=== PATIENT | male | born 1975 | race Caucasian/White ===

== ENCOUNTER 2025-04-23 13:48 | Emergency (ER) | payer BC ==
[~2025-04-23] VITALS: Ht 172.7 cm; Wt 82.0 kg
[2025-04-23 13:55] VITALS: O2SAT 100
[2025-04-23 16:11] LABS: BASOPHILS % 0.8 % (0.0-2.0); EOSINOPHILS % 1.0 % (0.0-5.0); HEMATOCRIT. 42.1 % (42.0-52.0); HEMOGLOBIN. 14.1 g/dL (14.0-18.0); LYMPHOCYTES % 15.2 % (20.0-50.0); MEAN PLATELET VOLUME 8.1 fl (7.4-10.4); MONOCYTES % 10.1 % (2.0-8.0); NEUTROPHILS % 72.9 % (40.0-76.0); PLATELET 226 x1000/uL (130-400); RED BLOOD CELL COUNT 4.52 mill/uL (4.7-6.1); RED CELL DISTRIBUTION WIDTH 14.5 % (11.6-14.6)
[2025-04-23 16:24] LABS: INR 1.0
[2025-04-23 16:31] LABS: CREATININE 0.8 mg/dL (0.6-1.3); UREA NITROGEN BLOOD 9 mg/dL (9-23)
[2025-04-23 16:33] LABS: ASPARTATE AMINOTRANSFERASE 48 IU/L (<34); TROPONIN I HIGH SENSITIVITY < 4 ng/L (3.0-53)
[2025-04-23 16:34] LABS: BILIRUBIN TOTAL 0.9 mg/dL (0.1-1.0); PROTEIN TOTAL 6.6 g/dL (6.0-8.3)
[2025-04-23 16:36] LABS: HCG SCREEN NEGATIVE
[2025-04-23] MEDS: POVIDONE-IODINE 10% TOPICAL SOLN 240ML TOP ONE (17:28)
[2025-04-23] MEDS: LIDOCAINE HCL 1% 20ML VIAL INFIL ONE (17:28)
[2025-04-23] MEDS ORDERED: CEPH500C2 MT (20:22)
[2025-04-23] MEDS ORDERED: IBUP-1455 MT (20:22)
[2025-04-23 20:41] VITALS: BP 126/74; PULSE 75; RESP 16; TEMP 36.6; O2SAT 98
== END 2025-04-23 20:42 | disposition home or self-care (01) ==
LOC: ER 13:48
DX: S62.521A Displaced fracture of distal phalanx of right thumb, initial encounter for closed fracture (principal); E78.00 Pure hypercholesterolemia, unspecified; I10 Essential (primary) hypertension; R55 Syncope and collapse; W23.0XXA Caught, crushed, jammed, or pinched between moving objects, initial encounter; Y93.89 Activity, other specified; Y92.89 Other specified places as the place of occurrence of the external cause; Y99.8 Other external cause status
CPT/HCPCS: 99285; 71045; 80053; 84703; 83735; 85025; 85610; 84484; 36415; 73130; 93005; 11740; J2003; 10060; 41800